=== PATIENT | female | born 1965 | race Hispanic/Latino ===

== ENCOUNTER 2017-05-01 07:32 | Day surgery (SDC) | payer BC ==
[~2017-05-01] VITALS: Ht 152.4 cm; Wt 67.1 kg
[~2017-05-01 07:32] MED LIST: ADULT ASPIRIN E81 MG PO; GLIP/METFORM1 TA2 PO; JANUVIA100 MG PO; LIPITOR20 MG PO; LISINOP/HCTZ1 TA1 PO; TRULICITY1.5 MG/0.5 IJ
[2017-05-01 11:12] VITALS: BP 106/62
== END 2017-05-01 11:06 | disposition home or self-care (01) | DRG 951 ==
LOC: ENDO 07:32
PROVIDERS: ATTEND Surgery
PROC: 0DJD8ZZ Inspection of Lower Intestinal Tract, Via Natural or Artificial Opening Endoscopic (ICD-10-PCS; principal; 2017-05-01)
DX: Z12.11 Encounter for screening for malignant neoplasm of colon (principal); I10 Essential (primary) hypertension; E11.9 Type 2 diabetes mellitus without complications; Z86.010 Personal history of colon polyps